=== PATIENT | female | born 1950 | race Caucasian/White ===

== ENCOUNTER 2025-04-24 16:27 | Inpatient (IN) | payer MEDICARE, OTHER ==
[~2025-04-24] VITALS: Ht 167.6 cm; Wt 73.5 kg
[2025-04-24 17:23] LABS: PLATELET COUNT (AUTO) 333 K/uL (150-450); RED BLOOD CELL COUNT(AUTO) 3.39 MIL/uL (4.0-5.2); RED CELL DISTRIBUTION WIDTH 12.7 % (11.5-15.0); WHITE BLOOD COUNT (AUTO) 4.9 K/uL (4.3-11.0)
[2025-04-24 17:24] LABS: CALCIUM, SERUM 8.5 mg/dL (8.5-10.1); CREATININE 0.8 mg/dL (0.6-1.3); SODIUM SERUM 142.0 mmol/L (136-145); UREA NITROGEN, BLOOD 10.0 mg/dL (7-18)
[2025-04-24 17:31] LABS: ASPARTATE AMINOTRANSFERASE 21.0 U/L (15-37); TOTAL PROTEIN, SERUM 6.3 g/dL (6.4-8.2)
[2025-04-24 17:50] LABS: BASOPHILS % (MANUAL) 0 % (0.0-2.0); EOSINOPHILS % (MANUAL) 5 % (0-4); LYMPHOCYTES % (MANUAL) 32 % (16-48); MONOCYTES % (MANUAL) 13 % (0-11.0); NEUTROPHILS % (MANUAL) 50 (42-76); PLATELET ESTIMATE ADEQUATE
[2025-04-24 18:19] LABS: AMPHETAMINE, URINE NEGATIVE (NEGATIVE); CANNABINOID, URINE NEGATIVE (NEGATIVE); COCCAINE, URINE NEGATIVE (NEGATIVE); OPIATE, URINE NEGATIVE (NEGATIVE)
[2025-04-24 18:20] LABS: BARBITURATE, URINE POSITIVE (NEGATIVE); BENZODIAZEPINE, URINE POSITIVE (NEGATIVE)
[2025-04-24 18:39] LABS: BLOOD, URINE Negative Ery/uL (NEGATIVE); LEUKOCYTE ESTERASE ,URINE Negative (NEGATIVE); NITRITE, URINE NEGATIVE (NEGATIVE); UGLUCOSE Negative (NEGATIVE)
[2025-04-24 19:01] LABS: APPEARANCE,URINE SLIGHTLY CLOUDY (CLEAR)
[2025-04-24 19:20] LABS: SQUAMOUS EPITHELIAL CELL,UR Few /HPF (None Seen); URINE AMORPHOUS PHOSPHATES Moderate /HPF (None Seen)
[2025-04-24 19:21] LABS: ADD URINE CULTURE NO
[2025-04-24] MEDS ORDERED: LORAZEPAM 1 MG TABLET ONE (20:28)
[2025-04-24] MEDS: LORAZEPAM 1 MG TABLET PO ONE (20:30)
[2025-04-24] MEDS ORDERED: CHLO25CA22 PO (20:45)
[2025-04-24] MEDS ORDERED: ALBU0.633 IH (20:45)
[2025-04-24] MEDS ORDERED: QUET50TA PO (20:45)
[2025-04-24] MEDS ORDERED: LORA-259 PO (20:45)
[2025-04-24] MEDS ORDERED: LEVE500T20 PO (20:45)
[2025-04-24] MEDS ORDERED: ASCO500C17 PO (20:45)
[2025-04-24] MEDS ORDERED: THIA100T74 PO (20:45)
[2025-04-24] MEDS ORDERED: CYAN10006 IJ (20:45)
[2025-04-24] MEDS ORDERED: CYAN100096 PO (21:43)
[2025-04-24] MEDS ORDERED: BISA10SU61 RC (21:44)
[2025-04-24] MEDS ORDERED: FOLI0.8C PO (21:45)
[2025-04-24] MEDS ORDERED: MULT-225 PO (21:47)
[2025-04-24] MEDS ORDERED: MELA3CAP2 PO (21:47)
[2025-04-24] MEDS ORDERED: OMEP20CA15 PO (21:48)
[2025-04-24] MEDS ORDERED: MAGNESIUM HYDROXIDE 30 ML UDC PO PRN (22:00)
[2025-04-24] MEDS ORDERED: ZOLPIDEM TARTRATE 5 MG TABLET PO PRN (22:00)
[2025-04-24] MEDS ORDERED: QUETIAPINE FUMARATE 25 MG TABLET PO PRN (22:00)
[2025-04-24] MEDS ORDERED: MAG HYDROX/AL HYDROX/SIMETH 30 ML UDC PO PRN (22:00)
[2025-04-24 22:42] VITALS: BP 136/74; TEMP 98.2; O2SAT 98
[2025-04-24] MEDS: BLOOD SUGAR DIAGNOSTIC 1 EACH STRIP IN ONE (23:29)
[2025-04-25] MEDS ORDERED: ALBUTEROL HALF STRENGTH 1.25 MG/3 ML VIAL.NEB NEB PRN (07:00)
[2025-04-25 08:00] VITALS: BP 115/79; TEMP 97.7; O2SAT 99
[2025-04-25] MEDS: THIAMINE HCL 100 MG TABLET PO SCH (09:00)
[2025-04-25] MEDS: LEVETIRACETAM (250 MG) 250 MG TABLET PO SCH (09:00)
[2025-04-25] MEDS: MULTIVITAMINS,THERAGRAN 1 UDTAB TABLET PO SCH (09:00)
[2025-04-25] MEDS: QUETIAPINE FUMARATE 25 MG TABLET PO SCH (09:00)
[2025-04-25] MEDS: FOLIC ACID 1 MG TABLET PO SCH (09:00)
[2025-04-25] MEDS: ASCORBIC ACID 500 MG TABLET PO SCH (09:00)
[2025-04-25] MEDS ORDERED: CYANOCOBALAMIN 100 MCG TABLET PO SCH (09:00)
[2025-04-25] MEDS: CYANOCOBALAMIN 500 MCG TABLET PO SCH (09:30)
[2025-04-25] MEDS: QUETIAPINE FUMARATE 25 MG TABLET PO PRN (15:11)
[2025-04-25] MEDS: HALOPERIDOL LACTATE INJ 5 MG/ML VIAL IM ONE (16:46)
[2025-04-25] MEDS: LORAZEPAM INJ 2 MG/ML VIAL IM STA (16:46)
[2025-04-25 20:10] VITALS: BP 126/82; TEMP 98.1; O2SAT 96
[2025-04-25] MEDS: ZOLPIDEM TARTRATE 5 MG TABLET PO PRN (21:03)
[2025-04-25 21:21] LABS: PLATELET COUNT (AUTO) 401 K/uL (150-450); RED BLOOD CELL COUNT(AUTO) 3.72 MIL/uL (4.0-5.2); RED CELL DISTRIBUTION WIDTH 13.0 % (11.5-15.0); WHITE BLOOD COUNT (AUTO) 7.5 K/uL (4.3-11.0)
[2025-04-25 21:29] LABS: CALCIUM, SERUM 9.4 mg/dL (8.5-10.1); CREATININE 0.8 mg/dL (0.6-1.3); SODIUM SERUM 136.0 mmol/L (136-145); UREA NITROGEN, BLOOD 12.0 mg/dL (7-18)
[2025-04-25 21:38] LABS: LDL 180.0 mg/dL (0-99)
[2025-04-26 15:25] VITALS: BP 151/74; TEMP 98.8; O2SAT 98
[2025-04-26] MEDS: ACETAMINOPHEN 325 MG TABLET PO PRN (20:02)
[2025-04-26 20:42] VITALS: BP 111/69; TEMP 98.1; O2SAT 95
[2025-04-27 08:14] VITALS: BP 116/79; TEMP 98.8; O2SAT 97
[2025-04-27 19:51] VITALS: BP 139/77; TEMP 98.6; O2SAT 98
[2025-04-27] MEDS: QUETIAPINE FUMARATE 25 MG TABLET PO SCH (20:14)
[2025-04-27] MEDS: DIVALPROEX SODIUM 125 MG TABLET.DR PO SCH (20:14)
[2025-04-28 08:00] VITALS: BP 143/89; TEMP 97.5; O2SAT 97
[2025-04-28 16:09] VITALS: BP 124/69; TEMP 98.8; O2SAT 98
[2025-04-28 19:48] VITALS: BP 130/73; TEMP 98.4; O2SAT 98
[2025-04-29 08:00] VITALS: BP 146/91; TEMP 98.1; O2SAT 99
[2025-04-29 16:00] VITALS: BP 113/70; TEMP 97.7; O2SAT 98
[2025-04-29 19:56] VITALS: BP 120/63; TEMP 97.7; O2SAT 99
[2025-04-29] MEDS: QUETIAPINE FUMARATE 25 MG TABLET PO SCH (20:09)
[2025-04-30 08:00] VITALS: BP 121/68; TEMP 97.7; O2SAT 98
[2025-04-30] MEDS: DIVALPROEX SODIUM 250 MG TABLET.DR PO SCH (14:00)
[2025-05-01 08:00] VITALS: BP 132/86; TEMP 97.7; O2SAT 97
[2025-05-01 16:00] VITALS: BP 117/67; TEMP 97.5; O2SAT 94
[2025-05-02 08:00] VITALS: BP 118/84; TEMP 97.8; O2SAT 97
[2025-05-02] MEDS: QUETIAPINE FUMARATE 25 MG TABLET PO SCH (09:20)
[2025-05-02 16:13] VITALS: BP 127/84; TEMP 98.6; O2SAT 97
[2025-05-03 08:00] VITALS: BP 123/83; TEMP 97.7; O2SAT 96
[2025-05-03 16:00] VITALS: BP 116/74; TEMP 98.1; O2SAT 96
[2025-05-03 21:10] VITALS: BP 117/70; TEMP 98.1; O2SAT 96
[2025-05-04 08:00] VITALS: BP 113/67; TEMP 98.1; O2SAT 100
[2025-05-04 16:00] VITALS: BP 133/81; TEMP 97.7; O2SAT 98
[2025-05-04 20:32] VITALS: BP 113/75; TEMP 98.1; O2SAT 98
[2025-05-05 08:00] VITALS: BP 107/67; TEMP 98; O2SAT 98
[2025-05-05 16:00] VITALS: BP 102/59; TEMP 97.7; O2SAT 96
[2025-05-05 20:07] VITALS: BP 122/71; TEMP 97.7; O2SAT 98
[2025-05-06 08:00] VITALS: BP 141/81; TEMP 97.7; O2SAT 100
[2025-05-06 10:00] VITALS: BP 144/81; TEMP 97.7
[2025-05-06 16:00] VITALS: BP 101/70; TEMP 98.7; O2SAT 96
[2025-05-06 16:18] VITALS: BP 121/70; TEMP 98.7; O2SAT 96
[2025-05-06 20:12] VITALS: BP 143/77; TEMP 98.8; O2SAT 100
[2025-05-06] MEDS: DIVALPROEX SODIUM 125 MG TABLET.DR PO SCH (20:15)
[2025-05-07 08:00] VITALS: BP 119/76; TEMP 99.1; O2SAT 97
[2025-05-07] MEDS: QUETIAPINE FUMARATE 25 MG TABLET PO SCH ×2 (13:05→20:19)
[2025-05-08 08:00] VITALS: BP 129/75; TEMP 98; O2SAT 99
== END 2025-05-08 13:11 | DRG 885 ==
LOC: ER 16:55 → GPS 20:25
PROVIDERS: ADMIT Psychiatry & Neurology Psychiatry; ATTEND Internal Medicine
DX: F39 Unspecified mood [affective] disorder (principal); F03.93 Unspecified dementia, unspecified severity, with mood disturbance; F03.92 Unspecified dementia, unspecified severity, with psychotic disturbance; F03.94 Unspecified dementia, unspecified severity, with anxiety; F29 Unspecified psychosis not due to a substance or known physiological condition; G40.909 Epilepsy, unspecified, not intractable, without status epilepticus; K21.9 Gastro-esophageal reflux disease without esophagitis; Z20.822 Contact with and (suspected) exposure to COVID-19; Y90.0 Blood alcohol level of less than 20 mg/100 ml; F10.20 Alcohol dependence, uncomplicated; F41.9 Anxiety disorder, unspecified; K72.90 Hepatic failure, unspecified without coma; J45.909 Unspecified asthma, uncomplicated; Z79.51 Long term (current) use of inhaled steroids; Z79.899 Other long term (current) drug therapy; F32.A Depression, unspecified; Z91.81 History of falling; Z73.6 Limitation of activities due to disability; R53.1 Weakness; R27.8 Other lack of coordination
CPT/HCPCS: 36415; 80048-TC; 80061-TC; 80076-TC; 80164-TC; 81001; 82962-TC; 85025-TC; 85027-TC; 87081-TC; 97116-TC; 97530-TC; G0480; J1200; J1630; J2060